=== PATIENT | male | born 1950 | race Caucasian/White ===

== ENCOUNTER 2017-04-05 06:59 | Observation (INO) | payer OTHER ==
[~2017-04-05] VITALS: Ht 188 cm; Wt 67.5 kg
--- NOTE | ~2017-04-05 | EKG ---
[address] [place] [address] ELECTROCARDIOGRAM REPORT Name: HODAN JARA Room #: 218-P [facility] M.R.#: [id number] Admission: 04/05/17 Attend Phys: Natanael Lakhani MD, FA Discharge: Date of : 52 Report #: [id number] THIS REPORT FOR: //name// [facility] Test Date: 2017-04-07 Test Time: 09:26:28 Pat Name: HODAN JARA Department: Room: 218 P Gender: M Tool Engineer: DARREL : 1950 Requested By: Natanael Lakhani Order Number: [id number] MD: Don Sahu Measurements Intervals [place] Rate: 55 P: 0 SD: 138 QRS: -43 QRSD: 102 T: 31 QT: 443 QTc: 424 Interpretive Statements Sinus rhythm Incomplete RBBB and LAFB Compared to ECG 04/05/2017 09:41:30 First degree AV block no longer present Electronically Signed On 04-07-2017 9:55:11 FAMILY SUPPORT SPECIALIST by Don Sahu [email or web address] <ELECTRONICALLY SIGNED> By: Don Sahu MD 04/07/1755 5 5 MD WEN Childs
--- NOTE | ~2017-04-05 | EKG ---
[address] [place] [address] ELECTROCARDIOGRAM REPORT Name: HODAN JARA Room #: 218-P [facility] M.R.#: [id number] Admission: 04/05/17 Attend Phys: Natanael Lakhani MD, FA Discharge: Date of : 52 Report #: [id number] THIS REPORT FOR: //name// [facility] Test Date: 2017-04-05 Test Time: 09:41:30 Pat Name: HODAN JARA Department: Room: 218 Gender: M Jewelry Maker: BASIM : 1950 Requested By: Natanael Lakhani Order Number: [id number] MD: Don Sahu Measurements Intervals [place] Rate: 67 P: 66 TX: 253 QRS: -56 QRSD: 108 T: 45 QT: 421 QTc: 445 Interpretive Statements Sinus rhythm Prolonged TX interval Probable left atrial enlargement Incomplete RBBB and LAFB Compared to ECG 06/07/2014 19:27:39 First degree AV block now present Incomplete right bundle-branch block now present Right bundle-branch block now present Atrial flutter no longer present Electronically Signed On 04-05-2017 23:00:40 UPHOLSTERY BUNDLER by Don Sahu [email or web address] <ELECTRONICALLY SIGNED> By: Don Sahu MD 04/05/17 2300 0941 0941 Don Sahu MD /EPI
--- NOTE | ~2017-04-05 | D ---
[facility] [place] [address] DISCHARGE SUMMARY Name: HODAN JARA Room #: 218-P [facility] Roxanne Keith#: [id number] Admission: 04/05/17 Attend Phys: Natanael Lakhani MD, FA Discharge: 04/07/17 Date of : 52 Report #: [id number] THIS REPORT FOR: //name// CC: DEJUAN Pedro DATE OF SERVICE: 04/07/2017 DISCHARGE DIAGNOSES: 1. Atrial flutter. 2. Previous mitral valve repair. 3. History of stroke. 4. Tobacco abuse. 5. Previous placement of a thoracic aortic stent graft. 6. History of deep venous thrombosis. CONSULTANTS: None. PROCEDURES: 1. Transesophageal echocardiogram. 2. Direct current cardioversion of atrial flutter. PRIMARY CARE DOCTOR: Dejuan Wyatt DO. HISTORY OF PRESENT ILLNESS: The patient is a 66-year-old white male who was brought to the outpatient department to undergo attempts at cardioversion. The patient apparently presented in 2004 with mitral regurgitation. He underwent mitral valve repair at [facility] by Dr. Juares. He is cared for at that time by Dr. Alejandra. He has a history of atrial arrhythmias and has been on propafenone. He had a previous stroke and has been chronically anticoagulated. Recently, he noticed an irregular heartbeat and some lightheadedness. I saw him in the office on 04/03. He is noted to be in atrial flutter with 2:1 ventricular response rate. I recommended ARMANDO and cardioversion. He denied any recent chest pain, shortness of breath, bleeding, syncope, edema. PAST MEDICAL HISTORY: Otherwise significant for previous fall from a ladder several years ago. He apparently required back surgery. He also apparently had a thoracic aortic tear and required a stent graft. He had a DVT and had an IVC filter placed. He has no history of hypertension, diabetes, hyperlipidemia. MEDICATIONS: Consist of warfarin, propafenone. ALLERGIES: He has no known drug allergies. [facility] [address] [place] [address] DISCHARGE SUMMARY Name: HODAN JARA Room #: 218[facility] Roxanne Keith#: [id number] Admission: 04/05/17 Attend Phys: Natanael Lakhani MD, FA Discharge: 04/07/17 Date of : 52 Report #: [id number] PHYSICAL EXAMINATION: VITAL SIGNS: Blood pressure was 130/70, pulse 110. HEENT: Mucous membranes moist. CHEST: Clear to auscultation. CARDIAC: Regular tachycardia. ABDOMEN: Soft. EXTREMITIES: Had no edema. LABORATORY DATA: Was done as an outpatient consist a glucose of 103, creatinine 0.9, potassium 4.7. Liver function studies were normal. INR was 2.6. White blood cell count 5.7, hemoglobin 16.0. HOSPITAL COURSE: The patient was brought to the outpatient department. I performed a ARMANDO that showed EF 45%, left atrial enlargement. The posterior mitral valve leaflet was thickened and fixed consistent of previous repair. No significant mitral stenosis. There is mild mitral regurgitation. There was no shunt, no thrombus. He was then cardioverted from atrial flutter to sinus rhythm. He did have a long pause. He was then admitted to a monitored bed and switched from propafenone to sotalol. He was noted to be bradycardic, and the dose was decreased to 40 mg twice day. Prior to discharge, he is ambulating, had no further complaints. Followup ECG showed sinus bradycardia, left axis, no QT prolongation. Additional workup during his hospitalization included a CT scan of the chest using contrast to evaluate his stent graft that was placed years ago. This showed the stent graft is in place and patent. Chronic appearing changes were noted in the lungs. His chest x-ray showed basilar atelectasis. Additional lab work, his INR at the time of discharge was 2.3. He had a T4 of 1.1. TSH 1.0. B12 is 322. The patient was discharged to continue his home medications that consisted of warfarin he takes 8 mg a day. I did recommend he check his INR in 4 days since he had change in medications. He was switched from propafenone to sotalol. The dose was decreased to 40 mg twice a day. He was discharged to return to care of Dr. Dejuan Wyatt for routine medical care including management of his INR. I plan on seeing him in the cardiology clinic in [facility] on 05/03 at 10:30 a.m. He was to contact my office if he is having any increasing shortness of breath, palpitations, syncope or bleeding. He is felt to have a good prognosis from a cardiac standpoint. <ELECTRONICALLY SIGNED> By: Natanael Lakhani MD, [facility] 04/08/17 1603 1234 1522 Natanael Lakhani MD, FACC /nt
--- NOTE | ~2017-04-05 | TEE ---
[facility] [address] [place] [address] TRANSESOPHAGEAL ECHOCARDIOGRAM Name: HODAN JARA Room #: REG CL OriKelsy#: [id number] Admission: 04/05/17 Attend Phys: Natanael Lakhani MD Discharge: Date of : 52 Date of Service: 04/05/17 0943 Report #: [id number] THIS REPORT FOR: //name// APPROVED REPORT Study performed: 04/05/2017 07:55:15 EXAM: Comprehensive 2D, Doppler, and color-flow Echocardiogram Patient Location: [facility] Room #: 9 Status: routine BSA: 2.17 HR: 101 bpm BP: 113/84 mmHg Other Information Study Quality: Good Indications Atrial Fibrillation Mitral valve repair Echo Enhancing Agent Indication: Rule out Shunt Agent(s) / Amount(s) Used: Agitated Saline 7 cc Agitated Saline 7 cc Procedure After obtaining informed consent, patient underwent transesophageal echo in the [facility]. Type of Sedation : Conscious Sedation Sedation was administered by Alejandrina Villa RN. Sedation start time: 810 Case end Time: 821 Sedation was achieved intravenously with: Versed (5 mg) Fentanyl (50 mcg) Transesophageal probe was inserted and advanced into esophagus without difficulty by Natanael Lakhani MD, FACC. Echo enhancement indication: R/O Septal defect. Echo enhancement agent administered: Agitated Saline The ARMANDO was performed without complications. Synchronized Cardioversion acheived with 100 Joules after one attempt(s). Rhythm following Synchronized Cardioversion: Normal Sinus Rhythm Throughout the procedure, the blood pressure, pulse oximetry, cardiac [facility] [address] [place] [address] TRANSESOPHAGEAL ECHOCARDIOGRAM Name: HODAN JARA GENET Room #: REG CL Sagar#: [id number] Admission: 04/05/17 Attend Phys: Natanael Lakhani MD Discharge: Date of : 52 Date of Service: 04/05/17 0943 Report #: [id number] rhythm, and rate were monitored. The patient tolerated the procedure without adverse effects. Recovery from conscious sedation was uneventful and vital signs were stable. After cardioversion, the patient had a several second sinus pause. Left Ventricle The left ventricle is normal size. There is global hypokinesis of the left ventricle. There is normal left ventricular wall thickness. Left ventricular systolic function is mildly decreased. LVEF is 40-45%. Right Ventricle The right ventricle is normal size. The right ventricular systolic function is normal. Atria Left atrium is mildly dilated. Interatrial septum is intact without evidence of ASD or PFO. No thrombus noted in the left atrial appendage The right atrium size is normal. Aortic Valve The aortic valve is normal in structure. No aortic regurgitation is present. There is no aortic valvular stenosis. Mitral Valve Posterior mitral valve leaflet is thickened and fixed consistent with prior mitral valve repair surgery. Mild mitral regurgitation. Tricuspid Valve The tricuspid valve is normal in structure. Mild tricuspid regurgitation. Pulmonic Valve The pulmonary valve is normal in structure. There is no pulmonic valvular regurgitation. Great Vessels The aortic root is normal in size. There was an Aortic STENT Pericardium There is no pericardial effusion. [facility] [address] [place] [address] TRANSESOPHAGEAL ECHOCARDIOGRAM Name: ESTEFANIHODANFRAN DE LEÓN Room #: REG CL [facility]#: [id number] Admission: 04/05/17 Attend Phys: Natanael Lakhani MD Discharge: Date of : 52 Date of Service: 04/05/17942 Report #: [id number] <Conclusion> LVEF is 40-45%. Left atrium is mildly dilated. Posterior mitral valve leaflet is thickened and fixed consistent with prior mitral valve repair surgery. Mild mitral regurgitation. Interatrial septum is intact without evidence of ASD or PFO. No thrombus noted in the left atrial appendage There was an Aortic STENT successful cardioversion of atrial flutter to nsr <ELECTRONICALLY SIGNED> By: Natanael Lakhani MD, FACC 04/05/1743 2 2 Natanael Lakhani MD, FACC /INF
[~2017-04-05 06:59] MED LIST: COUMADIN 5 MG TA5 M1 PO; TOPROL XL50 MG PO
[2017-04-05 07:21] VITALS: BP 126/93
[2017-04-05] MEDS ORDERED: COUMADIN 4 MG TA4 M1 PO (07:45)
[2017-04-05] MEDS ORDERED: PROPAFENONE 15150 MG PO (07:46)
[2017-04-05 12:10] VITALS: BP 109/77
[2017-04-05 15:40] VITALS: BP 102/67
[2017-04-05 19:50] VITALS: BP 106/71
[2017-04-06 00:45] VITALS: BP 103/63
[2017-04-06 04:30] VITALS: BP 104/68
[2017-04-06 04:43] LABS: INR 2.5; PROTIME 25.5 Seconds (9.3-11.4)
[2017-04-06 07:30] VITALS: BP 115/76
[2017-04-06 11:55] VITALS: BP 104/63
[2017-04-06 16:10] VITALS: BP 110/72
[2017-04-06 19:45] VITALS: BP 103/63
[2017-04-07 04:02] LABS: INR 2.3; PROTIME 23.1 Seconds (9.3-11.4)
[2017-04-07 04:30] VITALS: BP 106/62
[2017-04-07 07:45] VITALS: BP 114/71
[2017-04-07 07:55] VITALS: BP 122/82
[2017-04-07 11:05] VITALS: BP 143/71
[2017-04-07] MEDS ORDERED: SORINE 80 MG TA80 M1 PO (12:15)
[2017-04-07 12:54] VITALS: BP 143/71
== END 2017-04-07 14:03 | disposition home or self-care (01) ==
LOC: CATH 06:59 → 2N 08:38
PROVIDERS: Internal Medicine Cardiovascular Disease
DX: I48.92 Unspecified atrial flutter (principal); I48.91 Unspecified atrial fibrillation; Z86.73 Personal history of transient ischemic attack (TIA), and cerebral infarction without residual deficits